=== PATIENT | female | born 1990 | race Caucasian/White ===

== ENCOUNTER 2018-07-19 05:32 | Emergency (ER) | payer OTHER ==
[2018-07-19 05:45] VITALS: BMI 35.2
[2018-07-19] MEDS ORDERED: Sodium Chloride 0.9% 1,000 ML IV STA ×2 (05:50→09:12)
--- NOTE | 2018-07-19 06:01 | ED PDOC ---
HPI: Abdomen Time Seen by Provider: 07/19/18 05:35 Chief Complaint (Nursing): Abdominal Pain History Per: Patient History/Exam Limitations: no limitations Onset/Duration Of Symptoms: Hrs Location Of Pain/Discomfort: Epigastric Associated Symptoms: Nausea, Vomiting. denies: Fever, Chills Additional Complaint(s): 28 year old F with no PMHX presenting with nausea, vomiting x 2 hours, states it started after she woke up, complaining of burning epigastric pain as well. States she's vomited more than 10 times, non bloody non bilious, states "I have nothing left to vomit". States she had 3 loose bowel movements. Denies urinary symptoms. Admits to cannabis use but states not recently. PMD: None Past Medical History Reviewed: Historical Data, Nursing Documentation, Vital Signs Vital Signs: Last Vital Signs Temp 97.4 F L 07/19/18 05:40 Pulse 113 H 07/19/18 05:40 Resp 16 07/19/18 05:40 BP 112/74 07/19/18 05:40 Pulse Ox 99 07/19/18 05:40 - Medical History PMH: No Chronic Diseases Denies: Chronic Kidney Disease - Surgical History Surgical History: - Family History Family History: States: Unknown Family Hx - Home Medications Home Medications: Ambulatory Orders Medication Instructions Recorded Ibuprofen [Motrin] 600 mg PO Q6 #20 tab 09/27/15 Acetaminophen with Codeine 1 each PO Q4 PRN #20 tablet 10/16/15 [Tylenol with Codeine #3 Tablet] - Allergies Allergies/Adverse Reactions: Allergies Allergy/AdvReac Type Severity Reaction Status Date / Time No Known Allergies Allergy Verified 02/14/15 08:38 Review of Systems ROS Statement: Except As Marked, All Systems Reviewed And Found Negative Gastrointestinal: Positive for: Nausea, Vomiting, Abdominal Pain Physical Exam - Reviewed Nursing Documentation Reviewed: Yes Vital Signs Reviewed: Yes - Physical Exam Appears: Positive for: Non-toxic, No Acute Distress, Uncomfortable. Negative for: Well (Active vomiting) Head Exam: Positive for: ATRAUMATIC, NORMAL INSPECTION, NORMOCEPHALIC Skin: Positive for: Diaphoresis, Pallor Eye Exam: Positive for: EOMI, Normal appearance, PERRL ENT: Positive for: Normal ENT Inspection Neck: Positive for: Normal, Painless ROM Cardiovascular/Chest: Positive for: Tachycardia Respiratory: Positive for: CNT, Normal Breath Sounds Gastrointestinal/Abdominal: Positive for: Soft, Tenderness (Epigastric). Negative for: Organomegaly, Mass, Distended, Guarding, Rebound Back: Positive for: Normal Inspection Extremity: Positive for: Normal ROM Neurologic/Psych: Positive for: Alert, Oriented - Laboratory Results Result Diagrams: 07/19/18 05:50 07/19/18 05:50 - ECG O2 Sat by Pulse Oximetry: 99 Pulse Ox Interpretation: Normal Medical Decision Making Medical Decision MakinAM Patient presenting with nausea, vomiting, epigastric pain --Patient tachycardic, vomiting, uncomfortable --Differential includes but not limited to: gastroenteritis, gastritis, cannabinoid-incued hyperemesis, less likely gallbladder pathology --Will give fluids, medications, check labs, and re-eval 7AM --Will endorse to Dr. Mcwilliams pending re-assessment Disposition - Clinical Impression Clinical Impression: Gastroenteritis - Disposition Disposition: Transfer of Care Disposition Time: 07:00 Condition: STABLE Forms: [employer] ([place]i) Patient Signed Over To: Miesha Mcwilliams Handoff Comments: pending re-eval
[2018-07-19 06:17] LABS: BASO % 0.4 % (0.0-2.0); EOS # 0.1 K/uL (0.0-0.7); EOS % 1.1 % (0.0-4.0); HEMOGLOBIN 14.8 g/dL (12.0-16.0); LYMPH # 1.8 K/uL (1.0-4.3); MEAN CORPUSCULAR HEMOGLOBIN 28.6 pg (27.0-31.0); MEAN CORPUSCULAR HGB CONC 33.7 g/dL (33.0-37.0); MEAN PLATELET VOLUME 8.7 fl (7.2-11.7); MONO # 0.7 K/uL (0.0-0.8); MONO % 7.1 % (0.0-10.0); NEUT # 7.3 K/uL (1.8-7.0); NEUT % 73.4 % (50.0-75.0); RBC 5.17 Mil/uL (3.80-5.20); RED CELL DISTRIBUTION WIDTH 13.5 % (11.5-14.5)
[2018-07-19 06:21] LABS: ALB/GLOB RATIO 1.1 (1.0-2.1); ALBUMIN 4.5 g/dL (3.5-5.0); ALT/SGPT 38 U/L (9-52); AST/SGOT 28 U/L (14-36); BLOOD UREA NITROGEN 22 mg/dl (7-17); GFR NON-AFRICAN AMERICAN > 60; LIPASE 121 U/L (23-300)
[2018-07-19 07:06] LABS: SQUAMOUS EPITHIAL 7 /hpf (0-5); URINE BILIRUBIN NEGATIVE (NEGATIVE); URINE BLOOD NEGATIVE (NEGATIVE); URINE CLARITY SLIGHTY-CLOUDY (Clear); URINE COLOR YELLOW (YELLOW); URINE GLUCOSE (UA) NEG (NEGATIVE); URINE LEUKOCYTE ESTERASE NEG Leu/uL (Negative); URINE PROTEIN NEGATIVE (NEGATIVE); URINE UROBILINOGEN 0.2-1.0 mg/dL (0.2-1.0)
--- NOTE | 2018-07-19 07:15 | ED PDOC ---
- Laboratory Results Result Diagrams: 07/19/18 05:50 07/19/18 05:50 - ECG O2 Sat by Pulse Oximetry: 99 (RA) Pulse Ox Interpretation: Normal Medical Decision Making Medical Decision Making: Time: 07 --Patient signed out to this provider by Dr. Alvarez, pending reevaluation. Time: 909 --On reevaluation, patient feels a little better, but is still nauseous. Ordered Zofran and US. Scribe Attestation: Documented by Linda Tristan, acting as a scribe for Miesha Mcwilliams MD Provider Scribe Attestation: All medical record entries made by the Scribe were at my direction and personally dictated by me. I have reviewed the chart and agree that the record accurately reflects my personal performance of the history, physical exam, medical decision making, and the department course for this patient. I have also personally directed, reviewed, and agree with the discharge instructions and disposition. Disposition - Clinical Impression Clinical Impression: Gastroenteritis - Disposition Condition: STABLE Forms: [employer] (Hungarian)
[2018-07-19 07:57] LABS: BARBITURATES, UR NEGATIVE (NEGATIVE); BENZODIAZEPINES, UR NEGATIVE (NEGATIVE); OPIATES, UR NEGATIVE (NEGATIVE)
[2018-07-19 09:39] LABS: PHENCYCLIDINE, UR NEGATIVE (NEGATIVE)
[2018-07-19 13:08] VITALS: RESP 18
--- NOTE | 2018-07-19 14:28 | US ---
Date of service: 07/19/2018 HISTORY: Epigastric pain COMPARISON: None. TECHNIQUE: Sonographic evaluation of the right upper quadrant of the abdomen. FINDINGS: LIVER: Measures cm in length. Normal echogenicity of the liver parenchyma. No mass. No intrahepatic bile duct dilatation. GALLBLADDER: Unremarkable. No gallstones. COMMON BILE DUCT: Measures mm. No stones. No dilatation. PANCREAS: Unremarkable as visualized. No mass. No ductal dilatation. RIGHT KIDNEY: Measures cm in length. Normal echogenicity. No calculus, mass, or hydronephrosis. AORTA: No aneurysmal dilatation. IVC: Unremarkable. OTHER FINDINGS: None . IMPRESSION: Normal exam.
[2018-07-19 15:12] VITALS: BP 103/69; PULSE 86; TEMP 98.8; O2SAT 99
== END 2018-07-19 15:00 | disposition home or self-care (01) ==
LOC: H.ER 05:32
DX: K52.9 Noninfective gastroenteritis and colitis, unspecified (principal)
CPT/HCPCS: 76705; 80053; 80324; 80345; 80346; 80349; 80353; 80358; 80361; 81003; 81025; 83690; 83992; 85025; 96361; 96374; 96375; 99285; J2405; J7030